=== PATIENT | male | born 1970 | race Caucasian/White ===

== ENCOUNTER 2022-02-02 09:19 | Emergency (ER) | payer BC, SELFPAY ==
[2022-02-02 09:27] VITALS: BP 124/93; PULSE 93; RESP 16; TEMP 35.7; O2SAT 100; BMI 35.2
[2022-02-02] MEDS: SILVER NITRATE APPLICATOR 1 EACH STICK..EA. TOPICAL (10:06)
--- NOTE | 2022-02-02 10:08 | ED_ITS ---
History of Present Illness General Time Seen by Provider: 10:00 Date Seen: 02/02/22 Chief Complaint: Epistaxis/Nosebleed Stated Complaint: Bloody nose for 3 days Time Seen by Provider: 02/02/22 09:53 Source: patient and RN notes reviewed Mode of arrival: ambulatory Limitations: no limitations History of Present Illness HPI Narrative: Jose Alfredo is a very pleasant 51-year-old male otherwise healthy comes to the emergency with 3 days of intermittent nasal bleeds. Patient notes the onset of bleeding at 0200 hours while sleeping 3 days ago. This reoccurred the next day. Now he has even had some bleeding when he is working. He notes that occasionally it does run down the back of his throat. He has not noticed any bleeding in his gums. He has had some discolored urine and stool because he has been eating a lot of beats lately. He has not had chest pain or shortness of breath. He cannot recall an illness, cough, cold or runny nose. He denies any trauma to his nose including picking his nose. He does agree that maybe he is an aggressive person when blowing his nose. This has not happened to him in the past. Upon further discussion he states he takes about 6 Excedrin every day for body aches and pains. Related Data Home Medications Medication Instructions Recorded Confirmed amitriptyline 75 mg tablet 75 mg PO HS 02/02/22 02/02/22 Allergies Allergy/AdvReac Type Severity Reaction Status Date / Time No Known Drug Allergies Allergy Verified 02/02/22 09:32 Review of Systems Status of ROS: Reports: 6 or more systems reviewed and unremarkable except as noted in History and below Const: Reports: fatigue (He has not been getting a lot of sleep.); Denies: fever Eyes: Denies: change in vision ENMT: Denies: throat pain or difficulty swallowing Cardio: Denies: chest pain or shortness of breath with exertion Resp: Denies: shortness of breath GI: Denies: difficulty swallowing : Denies: painful urination Neuro: Denies: headache Endo: Reports: fatigue (He has not been getting a lot of sleep.) Cisco/Lymph: Denies: easy bruising or easy bleeding PFSH PFSH Social History Smoking Status: Former smoker Do you use any of these nicotine containing products: None How often do you have a drink containing alcohol: never How many standard drinks containing alcohol do you have on a typical day: 1 or 2 How often do you have six or more drinks on one occasion: Never AUDIT-C Alcohol total score: 0 Non-prescribed substance use: denies use Exam Const: Vital Signs, click to edit/add: Vital Signs - 24 hr 02/02/22 09:27 Temperature 96.3 F L Pulse Rate [Left P ulse Oximeter] 93 Respiratory Rate 16 Blood Pressure [Le ft Upper Arm] 124/93 H Pulse Oximetry 100 Oxygen Delivery Me thod Room Air Documenting provider has reviewed patient's vital signs: yes Common normals: no apparent distress, average body habitus, oriented x3, no limitations, healthy appearing, alert and well nourished General appearance: cooperative and comfortable HENMT: Common normals: normocephalic, head/scalp atraumatic and external nose normal Head and scalp: normocephalic and atraumatic Face and sinus: normal facial exam and face symmetric Nose: external nose normal Mouth: oral and palatal mucosa normal Throat: posterior oropharynx normal Other: Right [place] with septal losing/excoriation approximately 3 x 4 mm right nasal septum. On the left hyperemic area on the very superior turbinate not bleeding. Middle turbinate shows some very subtle oozing. Eye: Common normals: PERRL General eye: normal appearance of both eyes Pupil: PERRL Neck & C-Spine: Common normals: full ROM Resp: Common normals: normal respiratory effort and no use of accessory muscles Extremity: Common normals: normal to inspection Neuro: Common normals: oriented x3 Sensorium/orientation: alert Psych: Common normals: mental status grossly normal Skin: Common normals: no rashes or lesions noted General skin exam: no rashes or lesions noted Course Course Hospital Course: At this time patient is agreeable to silver nitrate cauterization. Given his significant Excedrin use on a daily basis as well as unusual bleeding will also check a CBC and basic panel. Upon review of patient's chart it does appear that he has had past history of alcohol withdrawal. Denies any alcohol at this time but will check liver function test and an INR. Vital Signs Vital signs: Initial Vital Signs Temperature 96.3 F L 02/02/22 09:27 Temperature Source Temporal Artery Scan 08/14/22 09:27 Pulse Rate 93 02/02/22 09:27 Respiratory Rate 16 02/02/22 09:27 Blood Pressure 124/93 H 02/02/22 09:27 Blood Pressure Mean 103 02/02/22 09:27 Blood Pressure Position Sitting 02/02/22 09:27 Pulse Oximetry 100 02/02/22 09:27 Oxygen Delivery Method 02/02/22 09:27 Vital Signs Temperature 96.3 F L 02/02/22 09:27 Pulse Rate 93 02/02/22 09:27 Respiratory Rate 16 02/02/22 09:27 Blood Pressure 124/93 H 02/02/22 09:27 Pulse Oximetry 100 02/02/22 09:27 Oxygen Delivery Method 02/02/22 09:27 Temperature 96.3 F L 02/02/22 09:27 Pulse Rate 93 02/02/22 09:27 Respiratory Rate 16 02/02/22 09:27 Blood Pressure 124/93 H 02/02/22 09:27 Pulse Oximetry 100 02/02/22 09:27 Oxygen Delivery Method 02/02/22 09:27 MDM - Epistaxis MDM Narrative Medical decision making narrative: 1. Epistaxis -patient tolerated procedure well. Would have him follow-up with Dr. Hartmann for ENT recheck. Recommending keeping your head elevated and not leaning over. Recommend sleeping on 2 pillows. Do not blow nose aggressively. Burn to the emergency room as needed. 2. Home. Patient is called with results of his laboratory values which include a reassuring hemoglobin at 13.6 as well as platelets of [id number]. INR is normal at 0.95 then comprehensive panel is also reassuring. Medical Records Attestation: I reviewed the patient's medical records. Lab Data Attestation: I reviewed the patient's lab results. Labs: Lab Results 02/02/22 02/02/22 02/02/22 Range/Units 10:18 10:18 10:18 WBC 5.87 (4.50-11.00) K/uL RBC 4.73 (4.30-5.90) m/uL Hgb 13.6 (13.5-17.5) gm/dL Hct 40.6 (37.0-53.0) % MCV 86 (80-100) fL MCH 29 (26-34) pg MCHC 34 (32-36) gm/dL RDW Coeff of Vaishnavi 12.2 (11.5-15.5) % Plt Count 312 (140-440) K/uL Neut % (Auto) 69.1 (42.0-72.0) % Lymph % (Auto) 19.8 L (20-44) % [place] % (Auto) 6.8 (0.0-11.0) % Eos % (Auto) 3.2 (0.0-7.0) % Baso % (Auto) 0.9 (0.0-3.0) % Neut # (Auto) 4.06 (1.7-7.0) K/uL Lymph # (Auto) 1.20 (0.90-2.90) K/uL [place] # (Auto) 0.40 (0.00-0.90) K/UL Eos # (Auto) 0.19 (0.00-0.50) K/uL Baso # (Auto) 0.05 (0.00-0.30) K/uL Abs Immat Gran (auto) 0.01 (0.00-0.30) K/uL INR 0.95 (0.91-1.10) Sodium 139 (135-149) mmol/L Potassium 4.5 (3.6-5.1) mmol/L Chloride 105 (96-114) mmol/L Carbon Dioxide 27 (20-32) mmol/L BUN 19 (7-30) mg/dL Creatinine 0.8 (0.5-1.5) mg/dL Estimated Creat Clear 77.26 Estimated GFR 107 ml/min Glucose 101 (60-115) mg/dL Calcium 8.9 (8.4-10.6) mg/dL Total Bilirubin 0.1 (0.1-1.5) mg/dL AST 25 (12-35) U/L ALT 20 (4-50) U/L Alkaline Phosphatase 66 (40-150) U/L Total Protein 7.4 (6.0-8.3) g/dL Albumin 4.2 (3.3-5.0) g/dL Discharge Plan Discharge Clinical Impression: Epistaxis Patient Disposition: Home, Self-Care Condition: Improved Additional Instructions: Sleep with head of bed elevated. Do not bend over to avoid increasing intracranial pressure. Recommend decreasing amount of Excedrin use. We will give you a call with your lab results. Return to the emergency room as needed. Otherwise follow up with ENT Dr. Hodgson for recheck. Appointments can be made by calling [phone]. Prescriptions: No Action amitriptyline 75 mg tablet 75 mg PO HS Label Comments: TAKE ONE TABLET BY MOUTH AT BEDTIME . Stand Alone Forms: [facility] Info Instructions Procedures Epistaxis Control Time Out Performed: No Nostril: Yes bilateral Direct inspection: Yes anterior source identified Direct inspection method: Yes otoscope Epistaxis treatment: Yes silver nitrate cautery Results of treatment: Yes bleeding controlled and Yes treatment well tolerated Estimated blood loss (if any): none Conclusion: patient tolerated procedure
[2022-02-02 10:25] LABS: Basophils Absolute Auto 0.05 K/uL (0.00-0.30); Basophils Percent Auto 0.9 % (0.0-3.0); Eosinophils Absolute Auto 0.19 K/uL (0.00-0.50); Eosinophils Percent Auto 3.2 % (0.0-7.0); Hematocrit 40.6 % (37.0-53.0); Hemoglobin* 13.6 gm/dL (13.5-17.5); Immature Granulocytes Abs Auto 0.01 K/uL (0.00-0.30); Lymphocytes Percent Auto 19.8 % (20-44); Mean Corpuscular HGB Conc 34 gm/dL (32-36); Mean Corpuscular Hemoglobin 29 pg (26-34); Mean Corpuscular Volume 86 fL (80-100); Monocytes Percent Auto 6.8 % (0.0-11.0); Neutrophils Absolute Auto 4.06 K/uL (1.7-7.0); Neutrophils Percent Auto 69.1 % (42.0-72.0); Platelet Count* 312 K/uL (140-440); RDW Coefficient of Variation % 12.2 % (11.5-15.5); Red Blood Count 4.73 m/uL (4.30-5.90); White Blood Count* 5.87 K/uL (4.50-11.00)
[2022-02-02 10:26] LABS: Slide Review Reflex No
[2022-02-02 10:41] LABS: Albumin* 4.2 g/dL (3.3-5.0); Chloride* 105 mmol/L (96-114); Sodium* 139 mmol/L (135-149)
[2022-02-02 10:42] LABS: Potassium* 4.5 mmol/L (3.6-5.1)
[2022-02-02 10:44] LABS: Alkaline Phosphatase* 66 U/L (40-150); Aspartate Amino Transferase* 25 U/L (12-35); Bilirubin Total* 0.1 mg/dL (0.1-1.5); Blood Urea Nitrogen* 19 mg/dL (7-30); Carbon Dioxide* 27 mmol/L (20-32); Creatinine* 0.8 mg/dL (0.5-1.5); Est. Creatinine Clearance* 77.26; Estimated Glomerular Filt Rate 107 ml/min; INR 0.95 (0.91-1.10); Total Protein* 7.4 g/dL (6.0-8.3)
[2022-02-02 10:45] LABS: Alanine Aminotransferase* 20 U/L (4-50); Calcium* 8.9 mg/dL (8.4-10.6); Glucose* 101 mg/dL (60-115)
== END 2022-02-02 10:35 | disposition home or self-care (01) ==
LOC: ED 10:36
PROVIDERS: Emergency Provider Family Medicine; PCP Nurse Practitioner Family
DX: R04.0 Epistaxis (principal)
CPT/HCPCS: 36415; 80048; 80053; 85025; 85610; 99283; A9270